=== PATIENT | female | born 1955 | race Caucasian/White ===

== ENCOUNTER 2022-02-06 06:30 | Day surgery (SDC) | payer OTHER ==
[2022-02-04 10:10] LABS: Absolute Lymphocytes (CBC) 1.5 K/uL (0.7-4.9); Hematocrit 46.1 % (36.0-45.0); Lymphocytes % 22.8 % (15.3-44.8); MCV 88.1 fL (80-100); MPV 7.1 fL (7.6-11.3); RBC Red Blood Cell Count 5.23 M/uL (3.86-4.86)
[2022-02-04 10:24] LABS: Potassium 4.8 mmol/L (3.5-5.1)
--- NOTE | 2022-02-04 11:28 | RAD REPORT ---
EXAM DESCRIPTION: RAD - Chest Pa And Lat (2 Views) - 02/04/2022 10:22 am CLINICAL HISTORY: Pre op pending carotid angiogram COMPARISON: Two view chest November 2014 TECHNIQUE: Frontal and lateral views of the chest were obtained. FINDINGS: The lungs are clear of focal abnormality. Interstitial markings are mildly prominent but n ot clearly different from 2015. No hilar mass or lymphadenopathy seen. Heart size is normal and osmel tral vasculature is within normal limits. No pleural effusion or pneumothorax seen. No acute bone f inding. Right convex thoracic scoliosis and degenerative change present similar to comparison. No aor tic abnormality. IMPRESSION: No acute cardiopulmonary process. No significant change from comparison study.
[2022-02-04 11:36] LABS: SARS-CoV-2 Antigen Rapid Res Negative (Negative)
[2022-02-04 12:59] LABS: Protime INR 0.96
--- NOTE | 2022-02-04 15:39 | EKG ---
Test Date: 2022-02-04 Test Time: 09:42:27 Silo Filler: JEANNIE MEASUREMENT RESULTS: Intervals: Rate: 59 ID: [id number] QRSD: 76 QT: 428 QTc: 423 Soldier: P: 40 ID: [id number] QRS: 68 T: 87 INTERPRETIVE STATEMENTS: Sinus bradycardia Otherwise normal ECG Compared to ECG 05/21/2009 08:56:30 No significant changes Electronically Signed On 02-04-22 15:38:17 CDT by Nader Daly
[2022-02-06] MEDS ORDERED: HEPA 1000U/500MLS 2,000 UNIT/1,000 ML BAG IV ONE (06:40)
[2022-02-06] MEDS ORDERED: LIDOCAINE 1% MPF 30 ML VIAL ONE (06:40)
[2022-02-06 06:56] VITALS: TEMP 97; O2SAT 96
[2022-02-06] MEDS ORDERED: FENTANYL CITR 100 MCG/2 ML ONE (06:57)
[2022-02-06] MEDS ORDERED: MIDAZOLAM HCL 2 MG/2 ML INJ ONE ×2 (06:57→07:46)
[2022-02-06] MEDS ORDERED: NA CHLORIDE 0.9% 0 ML IV ONE (06:58)
[2022-02-06] MEDS ORDERED: ATROPINE SULF 1 MG/10 ML SYR IV ONE (06:58)
[2022-02-06] MEDS ORDERED: NA CHLORIDE 0.9% 500 ML ONE (06:59)
[2022-02-06] MEDS ORDERED: NITROGLYCERIN 100 MCG/ML SYR (for cath lab use only) IV ONE (06:59)
[2022-02-06 09:28] VITALS: BP 115/60
--- NOTE | 2022-02-06 20:37 | OP ---
Surgeon: Curtis Barraza MD [employer] Operator: Ms. Rosemary Platt. Procedures: Patient was admitted for bilateral selective carotid angiogram, common femoral artery an giogram. Indication: Cerebrovascular disease, positive carotid Doppler on the left carotid. Procedure In Detail: Ms. Gamez is 66 with hypertension, dyslipidemia, admitted to the [facility] as a [facility] outpatient, prepped and draped in routine sterile fashion. Given Versed and fentanyl for sedation. A 6-Mongolian sheath was introduced in the right common femoral artery successfully using 10 cc of xyl ocaine in the Seldinger technique. Angiography there was normal. Angio-Seal was used to close the c ase. A JR4 catheter was used to select the right common carotid and the left common carotid separate ly. The common carotid artery and the internal carotid artery on the right were normal. There was a 70% external carotid artery stenosis. On the left side, there was a 90% stenosis right at the bifur cation of the ICA and common carotid artery. There was no complication. Blood loss was 5 cc. 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 Plan: For a left carotid endarterectomy. Patient will have a CD with her when she goes home and I w ill make her see Dr. Main Khanna in the near future. After the Angio-Seal, she will be at [facility] for 2 hours and then she will go home after that and I will make arrangements for followup. Anesthesia: Total conscious sedation 30 minutes. NEFTALY/LILA Voice ID: [id number] Report ID: [id number]
== END 2022-02-06 09:42 | disposition home or self-care (01) ==
LOC: CCL 06:30
DX: I65.23 Occlusion and stenosis of bilateral carotid arteries (principal); I10 Essential (primary) hypertension; E78.5 Hyperlipidemia, unspecified; Z86.73 Personal history of transient ischemic attack (TIA), and cerebral infarction without residual deficits; Z20.822 Contact with and (suspected) exposure to COVID-19
CPT/HCPCS: 93005; 85025; 80048; 36415; 85610; 85730; 71046; 36222 ×2; 87811; C1893; C1760; G0269; J2250 ×2; J3010; J7040; J1644; J0583